=== PATIENT | female | born 1985 | race Caucasian/White ===

== ENCOUNTER 2020-10-30 07:30 | Day surgery (SDC) | payer BC ==
[~2020-10-30] VITALS: Ht 157.5 cm; Wt 107.3 kg
[~2020-10-30 07:30] MED LIST: CITALOPRAM HBR20 MG PO; CLARITIN10 MG PO; CYMBALTA60 MG PO; FLONASE ALLERG9.9 ML; K-TAB ER20 MEQ PO; MELOXICAM7.5 MG PO; MOVE FREE ULTR1 EAC2 PO; NORCO 5-325 TA1 EACH PO; PENICILLIN V P500 MG PO; ROPINIROLE HCL1 MG PO; TRAZODONE HCL150 MG PO
[2020-10-30] MEDS ORDERED: HYDROCODON-ACE1 EA10 PO (09:09)
--- NOTE | 2020-10-30 09:12 | NUR ---
10/30/20 0912 Machelle Shook 0906- PT TO PACU IN SF POSITION. EYES CLOSED. RESPONDS TO VERBAL STIMULI. DENIES PAIN AND NAUSEA. FALLS QUICKLY BACK TO SLEEP. BREATHING EASY AND UNLBORED. SPO2 >95% ON 6 L O2 VIA SIMPLE MASK. PT STATES SHE WOULD LIKE ADDITIONAL PILLOW. 0911- PT RESTING COMFORTABLY. BREATHING EASY AND UNLABORED. SPO2 100% O2 TITRATED DOWN TO ROOM AIR. PT CONTINUES TO DENY PAIN AND NAUSEA. ICE APPLIED TO RIGHT EXTREMITY.
--- NOTE | 2020-10-31 15:14 | EKG ---
[facility] [address] [facility] [place], [place] [address] Signed Normal sinus rhythm Normal ECG No previous ECGs available Confirmed by DEVYN FLETCHER DO ([id number]) on 10/31/2020 3:13:58 PM Electronically Signed By: DEVYN FLETCHER DO 10/31/20 1514 PATIENT NAME: MATTI HERNANDES Electrocardiogram DATE OF : 81 PHYSICIAN: DEVYN FLETCHER DO REPORT #: [id number] REPORT IS CONFIDENTIAL AND NOT TO BE RELEASED WITHOUT AUTHORIZATION
--- NOTE | 2020-11-02 07:01 | OR ---
[facility] [address] [place], [place] [address] Signed DATE OF OPERATION: 10/30/2020 SURGEON: Kalie Cleveland MD PREOPERATIVE DIAGNOSIS: Carpal tunnel syndrome, right. POSTOPERATIVE DIAGNOSIS: Carpal tunnel syndrome, right. PROCEDURE PERFORMED: Right carpal tunnel release. STARTING GATE DRIVER: None. ANESTHESIA: Adryan block. TOURNIQUET TIME: 20 minutes. BRIEF HISTORY: Diane is a 35-year-old female with pain and numbness in her hand. Nerve conduction studies confirmed the carpal tunnel. Risks and benefits of operative treatment were discussed with her and she elected to proceed. DESCRIPTION OF PROCEDURE: Once consent was obtained, she was taken to the operating room. After adequate anesthesia, she was placed on operating room table, all downside pressure points were well padded. The right hand was prepped and draped in the standard sterile fashion. A 1.5 cm incision was made in the distal wrist crease carried through skin and subcutaneous tissue. The palmaris longus was fairly thin, but was retracted and protected. The underlying transverse carpal ligament was identified under loupe magnification and was dissected free of overlying soft tissue. It was released proximally a cm and half and distally to the distal extent again under magnification. The canal was palpated and was noted to be released all the way through. The wound was copiously irrigated with normal saline, closed with 3-0 nylon. The wound was injected with 6 mL of 0.25% Marcaine plain. She was then awakened, taken to the recovery room in satisfactory condition. We did Electronically Signed By: KALIE CLEVELAND MD 11/02/20 0701 PATIENT NAME: DIANE HERNANDES OPERATIVE REPORT DATE OF : 81 REPORT #: [id number] PHYSICIAN: KALIE CLEVELAND MD PCP: ROMINA VO PA-C REPORT IS CONFIDENTIAL AND NOT TO BE RELEASED WITHOUT AUTHORIZATION [facility] [address] [facility] [place] [address] Signed dress the wound with bacitracin, Adaptic, 4 x 8s, and gauze. She tolerated the procedure well. All sponge, needle, and instrument counts were correct. Kalie Cleveland MD BA/MODL /[id number] Copies: ~ Electronically Signed By: KALIE CLEVELAND MD 11/02/20 0701 PATIENT NAME: DIANE HERNANDES OPERATIVE REPORT DATE OF : 81 REPORT #: [id number] PHYSICIAN: KALIE CLEVELAND MD PCP: ROMINA VO PA-C REPORT IS CONFIDENTIAL AND NOT TO BE RELEASED WITHOUT AUTHORIZATION
== END 2020-10-30 10:05 | disposition home or self-care (01) ==
LOC: DS 07:30
PROVIDERS: ATTEND Specialist
PROC: 01N50ZZ Release Median Nerve, Open Approach (ICD-10-PCS; principal; 2020-10-30 08:45)
DX: G56.01 Carpal tunnel syndrome, right upper limb (principal); K21.9 Gastro-esophageal reflux disease without esophagitis; Z88.5 Allergy status to narcotic agent
CPT/HCPCS: 01810; 93005; 93010; J2001; J2405; J2704; J3010; J7121